=== PATIENT | female | born 1980 | race Caucasian/White ===

== ENCOUNTER 2025-03-31 16:25 | Outpatient (REF) | payer BC, SELFPAY | END 2025-03-31 16:26 | disposition home or self-care (01) | LOC: NCHCN 16:25 | PROVIDERS: Visit Provider Nurse Practitioner Family | DX: F90.2 Attention-deficit hyperactivity disorder, combined type (principal) | CPT/HCPCS: 80360 ==

== ENCOUNTER 2025-05-12 12:41 | Outpatient (REF) | payer BC, SELFPAY ==
[2025-05-12 20:55] LABS: Hemoglobin A1C 5.2 % (<5.7)
[2025-05-12 21:05] LABS: ALT 21 U/L (14-59); AST 11 U/L (15-37); Albumin 3.6 g/dL (3.4-5.0); Alkaline Phosphatase 47 U/L (46-116); Anion Gap 9.2 mmol/L (3-11); BUN 14 mg/dL (7-18); Bilirubin, Total 0.3 mg/dL (0.2-1.0); CO2 27.8 mmol/L (21.0-32.0); Calcium 8.9 mg/dL (8.5-10.1); Chloride 104 mmol/L (98-107); Cholesterol 209 mg/dL (<200); Glucose 93 mg/dL (74-106); HDL Cholesterol 83 mg/dL (>or=50); Potassium 4.6 mmol/L (3.5-5.1); Sodium 141 mmol/L (136-145); Total Protein 7.0 g/dL (6.4-8.2)
[2025-06-06 09:30] LABS: Hepatitis C Ab w Rflx HCV PCR Negative (Negative)
[2025-06-06 09:31] LABS: HIV-1/2 Ag & Ab Screen Negative (Negative)
== END 2025-05-12 12:42 | disposition home or self-care (01) ==
LOC: NCHCN 12:41
PROVIDERS: Visit Provider Nurse Practitioner Family
DX: I10 Essential (primary) hypertension (principal); Z13.1 Encounter for screening for diabetes mellitus; Z11.4 Encounter for screening for human immunodeficiency virus [HIV]; Z11.59 Encounter for screening for other viral diseases; Z83.438 Family history of other disorder of lipoprotein metabolism and other lipidemia
CPT/HCPCS: 80053; 80061; 86803; 87389; 83036

== ENCOUNTER → 2025-06-10 01:50 | Outpatient (CLI) | payer BC, SELFPAY ==
--- NOTE | 2025-06-10 16:01 | DI.MAMMO_ITS ---
Exam(s) MAMMO SCREENING EXAM: MAMMO SCREENING CLINICAL HISTORY: ADULT MED EXAM Z00.00 [facility] SCREENING MAMMO. TECHNIQUE: Bilateral full field digital CC and MLO mammographic images were obtained with 3D tomosynthesis and utilizing computer aided detection (CAD). COMPARISON: Prior outside mammograms were reviewed. FINDINGS: There has been no significant change in the appearance and distribution of the fibroglandular tissue. There are no CAD designations. There are no new spiculated masses nor malignant appearing microcalcification groups. Asymmetric density in the right breast is unchanged from prior outside mammograms. There is no significant architectural distortion nor skin thickening-retraction. IMPRESSION: No radiographic evidence of malignancy. BI-RADS Category 1 - Negative Breast Density - Category B - There are scattered areas of fibroglandular density. Breast density Category C or D implies that the patient has dense breast tissue. Dense breast tissue can make it harder to find cancer on a mammogram. Dense breast tissue is also associated with an increased risk of breast cancer. This information about the result of the mammogram report was provided to the patient to raise their awareness. Use this report when you speak with the patient about their risks for breast cancer, which includes their family history. At that time, you may recommend additional screening tests (Ultrasound or MRI) as these tests may add significant information. A negative radiographic report should not delay biopsy if a dominant or clinically suspicious mass is present. Up to ten percent of cancers are not identified on mammography. A negative report may reinforce clinical impression. Adenosis and dense breasts may obscure an underlying neoplasm. False positive reports average 6 to 10%. Patient will receive a letter notifying them of these results.
== END ==
PROVIDERS: Visit Provider Nurse Practitioner Family
DX: Z00.00 Encounter for general adult medical examination without abnormal findings (principal); Z12.31 Encounter for screening mammogram for malignant neoplasm of breast
CPT/HCPCS: 77063; 77067